=== PATIENT | male | born 1960 | race Caucasian/White ===

== ENCOUNTER 2022-11-08 16:12 | Outpatient (CLI) | payer MEDICARE, OTHER, SELFPAY ==
--- NOTE | 2022-11-08 16:14 | CRLHL7_ITS ---
For Patients: As a result of the Cures Act, medical imaging exams and procedure reports are released immediately into your electronic medical record. You may view this report before your referring provider. If you have questions, please contact your health care provider. INDICATION: COUGH, LEG EDEMA TECHNIQUE: Chest 2 views COMPARISON: 10/03/2019 FINDINGS: Left pleural effusion is present. Trace right pleural effusion. Increased lung volumes. No compression fracture. No pneumothorax. Postop changes right upper quadrant. No compression fracture. Cardiac silhouette is not enlarged. IMPRESSION: Small left pleural effusion. Trace right pleural effusion. No hydrostatic edema. COPD. Dictated by Miguel Ángel Pena MD @ 11/09/2022 8:42:49 AM (Electronically Signed)
== END 2022-11-08 16:13 | disposition home or self-care (01) ==
LOC: RAD 16:14
PROVIDERS: PCP Family Medicine; Visit Provider Family Medicine
DX: R60.0 Localized edema (principal); J90 Pleural effusion, not elsewhere classified; R05.9 Cough, unspecified
CPT/HCPCS: 71046; 80053; 84134

== ENCOUNTER 2022-11-19 14:00 | Outpatient (CLI) | payer MEDICARE, OTHER, SELFPAY ==
--- OUTSIDE RECORDS SUMMARY | 2022-11-19 14:17 | XMS_ITS | Continuity of Care Document ---
Author Name Unknown Organization [facility] Address [address] [facility] [place] [address] Phone Care Team Providers Care Supervisor Industrial Garment Name Role Phone Will Van GILLIS Unavailable Unavailabl e Allergies, Adverse Reactions, Alerts Substance Reaction Status Criticality lorazepam Active No Information mushroom Active No Information BUPROPION HCL Active No Information terazosin Active No Information losartan Active No Information lisinopril Active No Information hydrochlorothiazide Active No Infor mation Medications Medication Instructions Dosage Effective Dates (start - stop) Status Comments atenolol 50 mg tablet take 1 tablet by oral route every day 50 MG - Active Creon 6,000-19,000-30,000 unit capsule,delayed release take 4 capsule by oral route 3 times every day with meals and 2 capsules with each snack 4.00 capsule - Active oxycodone 10 mg tablet take 1 tablet by oral route every 4 hours as needed for pain, MAX 4 per day - Active hydroxyzine pamoate 25 mg capsule take 1 capsule by oral route 4 times every day 25 MG - Active ProAir HFA 90 mcg/actuation aerosol inhaler inhale 2 puff by inhalation route every 4 - 6 hours as needed 180 MCG - Active Qvar 80 mcg/actuation Metered Aerosol oral inhaler inhale 1 puff by inhalation route 2 times every day - Active ipratropium-albutero l 0.5 mg-3 mg(2.5 mg base)/3 mL nebulization soln inhale 3 milliliter by nebulization route 4 times every day as needed 3 milliliter - Active Procedures Procedure Date No Charge For Visit Per Prov OFFICE/OUTPATIENT VISIT, EST N BLOCK INJ, CELIAC PLEXUS FLUOROGUIDE FOR SPINE INJECTION 021 OFFICE/OUTPATIENT VISIT, EST Drug Urine Toxology With Chromatography Substance Interv 15-30mn OFFICE/OUTPATIENT VISIT, NEW OFFICE/OUTPATIENT VISIT, EST OFFICE CONSULTATION Advance Directives Directive Yes / No Effective Date File Name No Information Encounters Encounter Description Practice Location Reason(s) For Visit Diagnoses Date Provider Providers Copied on Encounter [facility], [address] [place] [address], [id number] , [place] tel:[phone] [facility] No Information 2 Arturo Araujo. [address] [place], [place], [id number] , [place]. tel:[phone] [facility], [address] [place] [address], [id number] , [place] tel:[phone] [facility] Chronic pancreatitis 1 Martinez Harmon. [address] [place], [place], [id number] , [place]. tel:[phone] Referring Provider: Lon Handy, [facility] [address] [place], [address]. tel:[phone] OFFICE/OUTPAT IENT VISIT, EST [facility], [address] [place] [address], [id number] , [place] tel:[phone] [facility] Abdominal pain (chief complaint) Chronic pain syndromeLong term (current) use of opiate analgesicCOPDGene ralized abdominal painChronic pancreatitisDepre ssion 1 Home Peacock. [address] [facility] [address], [place], [place], [id number] , [place]. tel:[phone] Referring Provider: Lon Handy, [facility] [address] [place], [address]. tel:[phone] [facility], [address] [place] [address], [id number] , [place] tel:[phone] [facility] Chronic pancreatitis 1 Martinez Harmon. [address] [place] [address], [id number] , [place]. [phone] Referring Provider: Lon Handy, [facility] [address] [place], [address]. tel:[phone] OFFICE/OUTPAT IENT VISIT, [facility], [address] [place] [address], [id number] , [place] [phone] [facility] Abdominal pain (chief complaint) Chronic pain syndromeLong term (current) use of opiate analgesicCOPDGene ralized abdominal painDepressionChr onic pancreatitis [address]. [address] [facility] [address], [place], [place], [id number] , [place]. [phone] Referring Provider: Lon Handy, [facility] [address] [place], [address]. tel:[phone] [facility], [address] [place] [address], [id number] , [place] tel:[phone] [facility] No Information [address]. [address] [facility] [address], [place], [place], [id number] , [place]. [phone] Referring Provider: Van Tong, [address] [place] [address], [id number]. tel:[phone] OFFICE/OUTPAT IENT VISIT, [facility], [address] [place] [address], [id number] , [place] tel:[phone] [facility] Abdominal pain (chief complaint) Chronic pain syndromeEncounter for screening for other disorderEncounter for therapeutic drug level monitoringLong term (current) use of opiate analgesicCOPDGene ralized abdominal painDepressionChr onic pancreatitis 1 Nyongesa Madonna. [address] [facility] [address], [place], [place], [id number] , [place]. tel:[phone] Referring Provider: Lon Handy, [facility] [address] [place], [address]. tel:[phone] OFFICE/OUTPAT IENT VISIT, EST [facility], [address] [place], [place], [id number] , [place] [phone] [facility] Abdominal pain (chief complaint) Generalized abdominal painChronic pancreatitisTobac co use 7 Debi Price. [address] [place], [place], [id number] , [place]. [phone] Referring Provider: Lon Handy, [facility] [address] [place], [address]. tel:[phone] OFFICE CONSULTATION [facility], [address] [place], [place], [id number] , [place] tel:[phone] [facility] Abdominal pain (chief complaint) Generalized abdominal painLong term (current) use of opiate analgesicChronic pancreatitis 7 Debi Price. [address] [place], [place], [id number] , [place]. tel:[phone] Referring Provider: Lon Handy, [facility] [address] [place], [address]. tel:[phone] Family History Family Member Type Diagnosis Age At Onset No Information Payers Payer name Insurance type Covered green party ID Authoriza tion(s) No Information Social History Type Description Quantity Date Captured Comments Sex Male Smoking Status No Information Chief Complaint And Reason For Visit No Information Reason For Referral Reason For Referral No Information Plan Of Treatment Date Type Action Status Goal ALT (SGPT). Due on 21 due Goal Order Annual PT. Due on due Goal Creatinine. Due on 18 due Goal UDT. Due on due Goal HYDRAULIC LIFT DRIVER Scanned. Due on due Goal OARS. Due on due Goal AST (SGOT). Due on due Goal Medication Reconciliation. D ue on due Goal Height. Due on d ue Goal Review Allergy List. Due on due Goal Tobacco Use. Due on due Goal PHQ-9. Due on du e Goal Weight. Due on d ue Goal Update Social History. Due o n due Goal GUSSET EDGER Paperwork. Due on due Goal AST (SGOT). Due on due Goal OARS. Due on due Goal HYDRAULIC LIFT DRIVER Scanned. Due on due Goal Medication Reconciliation. D ue on due Goal Height. Due on d ue Goal Review Allergy List. Due on due Goal Tobacco Use. Due on due Goal PHQ-9. Due on du e Goal Weight. Due on d ue Goal Update Social History. Due o n due Goal UDT. Due on due Goal Creatinine. Due on 18 due Goal Order Annual PT. Due on due Goal ALT (SGPT). Due on due Goal GUSSET EDGER Paperwork. Due on due Goal Tobacco cessation counseling completed Goal GUSSET EDGER Paperwork. Due on due Goal ALT (SGPT). Due on due Goal Order Annual PT. Due on due Goal Creatinine. Due on 18 due Goal UDT. Due on due Goal HYDRAULIC LIFT DRIVER Scanned. Due on due Goal OARS. Due on due Goal AST (SGOT). Due on due Goal Medication Reconciliation. D ue on due Goal Height. Due on d ue Goal Review Allergy List. Due on due Goal Tobacco Use. Due on due Goal PHQ-9. Due on du e Goal Weight. Due on d ue Goal Update Social History. Due o n due Goal HYDRAULIC LIFT DRIVER Scanned. Due on due Goal OARS. Due on due Goal AST (SGOT). Due on due Goal UDT. Due on due Goal Creatinine. Due on 18 due Goal Order Annual PT. Due on due Goal ALT (SGPT). Due on due Goal GUSSET EDGER Paperwork. Due on due Goal Update Social History. Due o n due Goal Weight. Due on d ue Goal PHQ-9. Due on du e Goal Tobacco Use. Due on 021 due Goal Review Allergy List. Due on due Goal Height. Due on d ue Goal Medication Reconciliation. D ue on due Goal Tobacco cessation counseling completed History Of Present Illness Encounter Date Complaint History Of Prese nt Illness Abdominal pain Severity is 6. D uration is chronic. It occurs constantly. The problem is unchanged. Location is diffuse. The patient describes it as aching and sharp. Symptom is aggravated by bending over, lifting, stairs, twisting and running. Relieving factors include lying down, rest, meds, walking and changing positions. Abdominal pain (comments) Hilario phillips is here for a follow up. Abdominal pain persists this month, but medication (rx'ed by PCP) does help to some extent. Reports overall 25% pain relief from Bilateral Celiac Plexus Blocks with Fluoroscopy on 04/14/21 including improvement in severe spasms and sharp, stabbing abdominal pain. However, the constant aching pain persists, and when aggravated by eating may become sharp. [facility] does not have any further treatment options for him.Reports current medication (oxycodone 10mg MAX 5/day rx'ed by PCP, would like [facility] to take over) regimen provides 50% pain relief and allows for increased functionality. Denies side effects from current medication regimen. He has still needed his normal dosage of oxycodone daily to manage the pain, despite relief from the injection. He takes the oxycodone PRN when he feels the pain.No other concerns today. Abdominal pain Severity is 5. D uration is chronic. It occurs constantly. The problem is unchanged. Location is damon-umbilical. The patient describes it as sharp. Symptom is aggravated by lifting, running and prolonged positioning. Relieving factors include lying down, rest, changing positions and meds. Abdominal pain (comments) Hilario phillips is here for a followup after initial consult. Abdominal pain persists. He is interested with trialing interventional options. He has an oxygen machine with him in today's visit, 2-4 liters/day. Started 4 years ago.No other concerns today. Abdominal pain (comments) Hilario phillips is here for an initial consult and presents with abdominal pain, initial onset 7 years ago. 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 His pancreatitis was initiated by 10-12 years of taking lisinopril for hypertension, no longer taking. The pain is located in the epigastric area. Eating causes pain which leads to loss of appetite. He consulted Braeden Justice MD from [facility] who did not have anything for him and referred him to a pain clinic for further options. He has been working with PCP for pain management, He was recently hospitalized for anemia. A week ago he visited [facility] ER for opioid withdrawal , he was given valium and one dose of oxycodone which improved his s/sReferred by PCP to take over pain management.Treatment Tried:oxycodone rx'ed by PCP - helpful, but not providing as much relief as it has in the past. he noticing that needs to escalate the doses Nortriptyline - no help no injections Pt goal: [facility] to take over pain management.Reports hx of depression. Abdominal pain Severity is 5. D uration is chronic. It occurs constantly. Location is LUQ, RUQ. The patient describes it as aching, sharp and stabbing. Symptom is aggravated by lifting, running, twisting and stairs. Relieving factors include lying down and meds. Abdominal pain (comments) Chester pacheco is here for a follow-up and medication refill. Presents with #5 oxycodone - on track. Reports current medication regimen provides effective pain relief. Denies SE from current medication regimen. Continues to smoke 1/2 to 1 pack per day. Would like to discontinue pain medications in the future, but also indicates he is apprehensive about pursuing injections and stopping medications as his goal is to continue working and avoiding ER visits. Spouse is present with him today and reports that he is doing well with his current medication regimen and has avoided the ER for 14 months. Abdominal pain Severity is 4. D uration is chronic. It occurs constantly. The problem is unchanged. Location is and central. The patient describes it as aching and sharp. Symptom is aggravated by lifting, movement and stairs. Relieving factors include lying down, Rx meds, rest and walking. Abdominal pain (comments) Hilario phillips is here for an initial pain consult referred by Dr. Lon Handy. Ramila is present at visit today. Whipple surgery completed on 09/26/2015 was helpful. Hx of chronic pancreatitis but no pancreatic cancer. Has been managing with oxycodone 10 mg TID which is helpful. His goal is to taper and discontinue oxycodone and to take oxycodone only during pancreatitis flares. Patient tried amitriptyline, but limited benefit, unknown dose. Was prescribed Oxycontin last month which was less beneficial than oxycodone. No hx of injections. Smokes 10-20 cigarettes per day and is not interested in quitting smoking right now. Continues to work part-time. Hx of disc herniations but experiences no back pain at this time. Patient uses marijuana occasionally for sleep and pain relief. Abdominal pain Onset: 14 months ago. Severity is 6. Duration is chronic. Symptom is aggravated by bending over, lifting, movement, running, stairs and ladders. Relieving factors include lying down, heat, rest and Rx meds. Functional Status Date Functional Assessmen t No Information Instructions Date Instruction Additional Infor mation No Information Assessments Type Assessment Date No Information Patient Care Teams Name Effective Dates (start - stop) Status Members No Information
--- OUTSIDE RECORDS SUMMARY | 2022-11-19 14:17 | XMS_ITS | Continuity of Care Document ---
Author Name Unknown Organization [facility] enter Address [address] [place] [address] Phone Care Team Providers Care Instructional Consultant Name Role Phone [facility] Unavailable Unava ilable Procedures Procedure Date No Charge For Visit Per Prov N BLOCK INJ, CELIAC PELUS FLUOROGUIDE FOR SPINE INJECT Advance Directives Directive Yes / No Effective Date File Name No Information Encounters Encounter Description Practice Location Reason(s) For Visit Diagnoses Date Provider Providers Copied on Encounter [facility], [address] [place] [address], [id number], tel:[phone] [facility] No Information 1 [facility]. [address] [place] [address], [id number], [place]. tel:[phone] Referring Provider: Brian Ferrara [facility] [place], [address] . tel:[phone] [facility], [address] [place] [address], [id number], tel:[phone] [facility] No Information [facility]. [address] [place] [address], [id number], . tel:[phone] Referring Provider: Sofie Ferrara[address] [place], [address] . tel:[phone] Family History Family Member Type Diagnosis Age At Onset No Information Payers Payer name Insurance type Covered green party ID Authoriza tion(s) No Information Social History Type Description Quantity Date Captured Comments Sex Male Smoking Status No Information Chief Complaint And Reason For Visit No Information Reason For Referral Reason For Referral No Information Plan Of Treatment Date Type Action Status No Information History Of Present Illness Encounter Date Complaint History Of Prese nt Illness No Information Functional Status Date Functional Assessmen t No Information Instructions Date Instruction Additional Infor mation No Information Assessments Type Assessment Date No Information Patient Care Teams Name Effective Dates (start - stop) Status Members No Information
== END 2022-11-19 14:01 | disposition home or self-care (01) ==
PROVIDERS: PCP Family Medicine; Visit Provider Family Medicine
DX: R60.0 Localized edema (principal); I35.1 Nonrheumatic aortic (valve) insufficiency; I34.0 Nonrheumatic mitral (valve) insufficiency; I07.1 Rheumatic tricuspid insufficiency
CPT/HCPCS: 93306

== ENCOUNTER 2022-12-06 14:50 | Outpatient (CLI) | payer MEDICARE, OTHER, SELFPAY ==
--- OUTSIDE RECORDS SUMMARY | 2022-12-27 12:39 | XMS_ITS | Continuity of Care Document ---
Author Name Unknown Organization [facility] enter Address [address] [place] [address] Phone Care Team Providers Care Sanforizing Machine Operator Name Role Phone [facility] Unavailable Unava ilable Procedures Procedure Date No Charge For Visit Per Prov N BLOCK INJ, CELIAC PELUS FLUOROGUIDE FOR SPINE INJECT Advance Directives Directive Yes / No Effective Date File Name No Information Encounters Encounter Description Practice Location Reason(s) For Visit Diagnoses Date Provider Providers Copied on Encounter [facility], [address] [place] [address], [id number], tel:[phone] [facility] No Information 1 [facility]. [address] [place] [address], [id number], . tel:[phone] Referring Provider: [facility] [address] [place], [address]. tel:[phone] [facility], [address] [place] [address], [id number], tel:[phone] [facility] No Information [facility]. [address] [place] [address], [id number], . tel:[phone] Referring Provider: Yoan FerraraFluoresentric N [facility] [address], [place], [address]. tel:[phone] Family History Family Member Type Diagnosis Age [...]
--- OUTSIDE RECORDS SUMMARY | 2022-12-27 12:39 | XMS_ITS | Continuity of Care Document ---
Author Name Unknown Organization [facility] Address [address] [facility] [place] [address] Phone Care Team Providers Care Corrective Therapist Name Role Phone Will Van GILLIS Unavailable [...] Diagnoses Date Provider Providers Copied on Encounter [facility], [address] [place] [address], [id number] , [place] [phone] [facility] No Information 2 Arturo Araujo. [address] [place], [place], [id number] , [place]. tel:[phone] [facility], [address] [place] [address], [id number] , [place] tel:[phone] [facility] Chronic pancreatitis 1 Henriquezbecky Harmon. [facility], [address] [facility] [address], [place], [address], [place]. tel:[phone] Referring Provider: Lon Handy, [facility] [address] [place], [address]. tel:[phone] OFFICE/OUTPAT IENT VISIT, EST [facility], [address] [place] [address], [id number] , [place] tel:[phone] [facility] Abdominal pain (chief complaint) Chronic pain syndromeLong term (current) use of opiate analgesicCOPDGene ralized abdominal painChronic pancreatitisDepre ssion 1 Home Pe[address]. [address], [place], [place], [id number] , [place]. tel:[phone] Referring Provider: Lon Handy, [facility] [address] [place], [address]. tel:[phone] [facility], [address] [place], [place], [id number] , [place] tel:[phone] [facility] Chronic pancreatitis 1 Martinez Harmon. [facility], [address] [facility] [address], [place], [address], [place]. tel:[phone] Referring Provider: Lon Handy, [facility] [address] [place], [address]. tel:[phone] OFFICE/OUTPAT IENT VISIT, [facility], [address] [place] [address], [id number] , [place] [phone] [facility] Abdominal pain (chief complaint) Chronic pain syndromeLong term (current) use of opiate analgesicCOPDGene ralized abdominal painDepressionChr onic pancreatitis [address]. [address] [facility] [address], [place], [place], [id number] , [place]. [phone] Referring Provider: Lon Handy, [facility] [address] [place], [address]. tel:[phone] [facility], [address] [place] [address], [id number] , [place] tel:[phone] [facility] No Information 1 [address]. [address] [address] [address], [place], [place], [id number] , [place]. [phone] Referring Provider: Van Tong, [address] [place], [address]. tel:[phone] OFFICE/OUTPAT IENT VISIT, [facility], [address] [place] [address], [id number] , [place] tel:[phone] [facility] Abdominal pain (chief complaint) Chronic pain syndromeEncounter for screening for other disorderEncounter for therapeutic drug level monitoringLong term (current) use of opiate analgesicCOPDGene ralized abdominal painDepressionChr onic pancreatitis [address]. [address], [place], [id number] , [place]. tel:[phone] Referring Provider: Lon Handy, [facility] [address] [place], [address]. tel:[phone] OFFICE/OUTPAT IENT VISIT, EST [facility], [address] [place], [place], [id number] , [place] tel:[phone] [facility] [place] Abdominal pain (chief complaint) Generalized abdominal painChronic pancreatitisTobac co use 7 Trkerlinenadeborah Price. [address] [place], [place], [id number] , [place]. [phone] Referring Provider: Lon Handy [facility] [address] [place], [address]. tel:[phone] OFFICE CONSULTATION [facility], [address] [place] [address], [id number] , [place] tel:[phone] [facility] Abdominal pain (chief complaint) Generalized abdominal painLong term (current) use of opiate analgesicChronic pancreatitis Debi Price. [address] [place], [place], [id number] , [place]. [phone] Referring Provider: Lon Handy [facility] [address] [place], [address]. tel:[phone] Family History Family Member Type Diagnosis Age At Onset No Information Payers Payer name Insurance type Covered libertarian ID Authoriza tion(s) No Information Social History Type Description Quantity Date Captured Comments Sex Male Smoking Status No Information Chief Complaint And Reason For Visit No Information Reason For Referral Reason For Referral No Information Plan Of Treatment Date Type Action Status Goal Height. Due on d ue Goal Review Allergy List. Due on due Goal Tobacco Use. Due on 022 due Goal PHQ-9. Due on du e Goal Weight. Due on d ue Goal Update Social History. Due o n due Goal LAUNDRY OPERATOR WASH ROOM Paperwork. Due on due Goal ALT (SGPT). Due on due Goal Order Annual PT. Due on due Goal Creatinine. Due on due Goal UDT. Due on due Goal SCREW MACHINE HAND Scanned. Due on due Goal OARS. Due on due Goal AST (SGOT). Due on due Goal Medication Reconciliation. D ue on due Goal AST (SGOT). Due on due Goal OARS. Due on due Goal SCREW MACHINE HAND Scanned. Due on due Goal UDT. Due on due Goal Creatinine. Due on due Goal Order Annual PT. Due on due Goal ALT (SGPT). Due on due Goal LAUNDRY OPERATOR WASH ROOM Paperwork. Due on due Goal Medication Reconciliation. D ue on due Goal Height. Due on d ue Goal Review Allergy List. Due on due Goal Tobacco Use. Due on due Goal PHQ-9. Due on du e Goal Weight. Due on d ue Goal Update Social History. Due o n due Goal Tobacco cessation counseling completed Goal LAUNDRY OPERATOR WASH ROOM Paperwork. Due on due Goal Weight. Due on d ue Goal Update Social History. Due o n due Goal ALT (SGPT). Due on due Goal Order Annual PT. Due on due Goal Creatinine. Due on 18 due Goal UDT. Due on due Goal SCREW MACHINE HAND Scanned. Due on due Goal OARS. Due on due Goal AST (SGOT). Due on due Goal Medication Reconciliation. D ue on due Goal Height. Due on d ue Goal Review Allergy List. Due on due Goal Tobacco Use. Due on due Goal PHQ-9. Due on du e Goal SCREW MACHINE HAND Scanned. Due on due Goal OARS. Due on due Goal AST (SGOT). Due on due Goal UDT. Due on due Goal Creatinine. Due on 18 due Goal Order Annual PT. Due on due Goal ALT (SGPT). Due on due Goal LAUNDRY OPERATOR WASH ROOM Paperwork. Due on due Goal Update Social [...] when aggravated by eating may become sharp. [facility] does not have any further treatment options [...] rest, changing positions and meds. Abdominal pain Severity is 5. D uration is chronic. It occurs constantly. Location is LUQ, RUQ. The patient describes it as aching, sharp and stabbing. Symptom is aggravated by lifting, running, twisting and stairs. Relieving factors include lying down and meds. Abdominal pain (comments) Hilario phillips [...] appetite. He consulted Braeden Justice MD from [facility] who did not have anything for him and referred him to a pain clinic for further options. He has been working with PCP for pain management, He was recently hospitalized for anemia. A week ago he visited [facility] ER for opioid withdrawal , he was [...] pain management.Reports hx of depression. Abdominal pain (comments) Chester pacheco is here [...] Rx meds, rest and walking. Abdominal pain Onset: 14 months ago. Severity [...]
== END 2022-12-06 14:51 | disposition home or self-care (01) ==
LOC: AMB 12-27 12:37
PROVIDERS: PCP Family Medicine; Visit Provider Family Medicine
DX: R41.82 Altered mental status, unspecified (principal)
CPT/HCPCS: A0425; A0427

== ENCOUNTER 2022-12-06 15:36 | Emergency (ER) | payer MEDICARE, OTHER, SELFPAY ==
[2022-12-06] VITALS (40 sets, daily range): BP systolic 85–160; BP diastolic 49–82; PULSE 81–95; RESP 8–20; TEMP 36.6; O2SAT 93–100
[2022-12-06] MEDS: HYDROmorphone 0.5 mg/0.5 ml inj IVP ×4 (15:50→20:07)
--- NOTE | 2022-12-06 15:55 | ED_ITS ---
HPI - General Adult General Time Seen by Provider: 03:30 Date Seen: 12/06/22 Chief complaint: Altered Mental Status Stated complaint: Sepsis Time Seen by Provider: 12/06/22 15:55 Source: family, RN notes reviewed and old records reviewed Mode of arrival: EMS Limitations: no limitations History of Present Illness HPI narrative: Rajiv is a 62-year-old male with a history of malnutrition, chronic nausea, ischemic bowel, chronic pancreatitis who comes to the emergency room via EMS for possible sepsis per EMS. According to Rajiv's he has been declining over the past 24 hours in terms of strength and seems to be much more tired and confused today. She states yesterday she had the help him stand up to go to the bathroom and this is unusual. He had been complaining of feeling like he needed to urinate but only urinating small amounts. He is usually not incontinent per presents with urine soaked underwear today. She states that today he slept in this morning and then this afternoon did appear to be replying to questions appropriately. He has had no fever or chills. He has occasional vomiting when he eats too much and she describes that he has multiple abdominal vessels that are occluded. He states that about 5-6 weeks ago he began did have swelling of his feet. She notes that he is actually supposed to discussed amputation of his left lower extremity with a [facility] physician coming up soon. This is secondary to chronic nonhealing ulcers and osteomyelitis. He is not currently on any antibiotics. He has not had a fever. EMS notes multiple open sores on body including buttock sacrum elbow bilateral feet and knee. His states that his skin is very fragile. EMS did use ketamine in order to place an IV and get Rajiv to come to the hospital. His is requesting no Ativan as he has had this in the past and it made him go ?crazy? and he did not have memories for about 24 hours. She states that he has been on oxycodone 10 mg chronically for about 10 years and he is overdue at this time. She notes that Dilaudid is the medication that seems to work best for his pain and that morphine does not. She does not think he has had any recent falls or trauma. He does not use alcohol or drugs at this time. He is still a smoker. She states he uses 4 L of oxygen chronically at home for COPD. He has not had an unusual cough. I do ask Rajiv's regarding his wishes for care. At this time he is full code. She states that she was actually going to have a talk with him as he was potentially facing a left lower extremity amputation secondary to chronic osteomyelitis. Note EMS also has concerns about possible a bug infestation and will be making a vulnerable adult claim. Mrs. Velasco was able to provide information regarding a hospitalization at [facility] in August of this year. Diagnoses at that time showed postprandial abdominal pain associated with nausea and vomiting and weight loss although according to CT angio there is no evidence of mesenteric ischemia Significant weight loss with severe malnutrition Pancreatic pseudocyst status post Whipple procedure History of alcohol-related pancreatitis Chronic opioid use Ischemic foot on the left. Severe COPD Related Data Home Medications Medication Instructions Recorded Confirmed albuterol sulfate 90 mcg/actuation 2 inh inhalation Q4H PRN 07/06/22 12/06/22 aerosol inhaler aspirin 325 mg tablet,delayed 325 mg PO DAILY 07/06/22 12/06/22 release budesonide 160 mcg-glycopyr 9 2 inh inhalation BID 07/06/22 12/06/22 mcg-formot 4.8 mcg/actuation HFA inhaler hydroxyzine HCl 25 mg tablet 25 mg PO Q6H PRN 07/06/22 12/06/22 omeprazole 20 mg tablet,delayed 20 mg PO DAILY 07/06/22 12/06/22 release amlodipine 10 mg tablet 10 mg PO DAILY 11/08/22 12/06/22 atenolol 100 mg tablet 50 mg PO BID 11/08/22 12/06/22 ipratropium 0.5 mg-albuterol 3 mg 1 ml inhalation QID PRN 11/08/22 12/06/22 (2.5 mg base)/3 mL nebulization soln [id number] 2 cap PO TIDWMEAL 12/06/22 12/06/22 6,000-19,000-30,000 unit capsule,delayed rel (Creon) Previous Rx's Medication Instructions Recorded oxycodone 5 mg tablet 15 mg PO QID PRN pain #168 tabs 11/30/22 Allergies Allergy/AdvReac Type Severity Reaction Status Date / Time lisinopril Allergy Intermediate Confusion Verified 12/06/22 15:57 losartan Allergy Mild Verified 12/06/22 15:57 bupropion Allergy Unknown Verified 12/06/22 15:57 terazosin Allergy Unknown Hypotension Verified 12/06/22 15:57 hydrochlorothiazide AdvReac Unknown spacy Verified 12/06/22 15:57 lorazepam AdvReac Unknown Confusion Verified 12/06/22 15:57 Mushroom Extract Complex Allergy Mild Gastrointestinal Uncoded 11/08/22 15:23 Upset Review of Systems Status of ROS: Reports: unobtainable due to medical condition Narrative: According to , no recent fever chills vomiting or diarrhea. Const: Reports: fatigue and malaise; Denies: fever or chills Endo: Reports: fatigue PFSH PFSH Medical History History of alcohol abuse ?F10.11 - Alcohol abuse, in remission (ICD-10) History of delayed wound healing ?Z87.898 - Personal history of other specified conditions (ICD-10) History of pulmonary embolism (10/26/05) ?Z86.711 - Personal history of pulmonary embolism (ICD-10) Surgical History History of cholecystectomy (03/04/15) ?Z90.49 - Acquired absence of other specified parts of digestive tract (ICD- 10) History of colonoscopy ?Z98.890 - Other specified postprocedural states (ICD-10) History of revascularization procedure of lower extremity (06/26/21) ?Z98.62 - Peripheral vascular angioplasty status (ICD-10) 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) ?Z90.410 - Acquired total absence of pancreas (ICD-10) ?Z90.49 - Acquired absence of other specified parts of digestive tract (ICD- 10) Status post bilateral cataract extraction (2015) ?Z98.41 - Cataract extraction status, right eye (ICD-10) ?Z98.42 - Cataract extraction status, left eye (ICD-10) Family History Father Coronary artery disease Social History Smoking Status: Current every day smoker How often do you have a drink containing alcohol: never AUDIT-C Alcohol total score: 0 Non-prescribed substance use: denies use service: No Exam Narrative: Exam Narrative: Patient is obtain ended at this time. He does wince when we try to move him. He is protecting his airway. Pupils are approximately 3 mm and reactive. He is cachectic in appearance and smells strongly of urine. Oral dentition very poor. Neck is supple. Heart with regular rate and rhythm and lungs are with decreased breath sounds bilaterally but no crackles are auscultated. Abdomen is soft there does not appear to be any tenderness. Questionable fullness in the pelvic region. He has drawn his left leg into a flexed position. His knee has open ulcer without surrounding erythema. His feet bilaterally show may serrated tissue especially on the left with bilateral 3+ swelling. Right dorsum of the foot has a half dollar sized ulcer. There is wearing of the heels bilaterally. On his buttocks he has multiple areas of erythema and skin breakdown with ulceration in the low sacral area as well as the left buttock. Additional skin breakdown on the right elbow. He is starting to be resistant to examination. Dilaudid 0.5 mg IV is given and he is much improved. He has still not been conversive at this time. Const: Vital Signs, click to edit/add: Vital Signs - 24 hr 12/06/22 15:38 12/06/22 16:09 12/06/22 16:15 Temperature 97.8 F Pulse Rate 89 88 Pulse Rate [Pulse Oximeter] 84 Respiratory Rate 20 19 20 Blood Pressure Blood Pressure [Ri ght Upper Arm] 109/79 Pulse Oximetry 100 100 Oxygen Delivery Me thod Room Air 12/06/22 16:30 12/06/22 16:41 12/06/22 16:45 Temperature Pulse Rate 95 85 91 Pulse Rate [Pulse Oximeter] Respiratory Rate 15 16 8 L Blood Pressure 160/79 H Blood Pressure [Ri ght Upper Arm] Pulse Oximetry 100 100 100 Oxygen Delivery Me thod 12/06/22 16:47 12/06/22 17:00 12/06/22 17:02 Temperature Pulse Rate 86 83 85 Pulse Rate [Pulse Oximeter] Respiratory Rate 16 16 14 Blood Pressure 151/51 H 138/82 Blood Pressure [Ri ght Upper Arm] Pulse Oximetry 100 100 100 Oxygen Delivery Wy thod 12/06/22 17:15 12/06/22 17:30 12/06/22 17:31 Temperature Pulse Rate 84 87 86 Pulse Rate [Pulse Oximeter] Respiratory Rate 12 16 15 Blood Pressure 131/51 L Blood Pressure [Ri ght Upper Arm] Pulse Oximetry 96 100 100 Oxygen Delivery Me thod 12/06/22 17:32 12/06/22 17:51 12/06/22 18:00 Temperature Pulse Rate 87 87 Pulse Rate [Pulse Oximeter] Respiratory Rate 14 13 16 Blood Pressure Blood Pressure [Ri ght Upper Arm] Pulse Oximetry 100 100 Oxygen Delivery Wy thod 12/06/22 18:01 12/06/22 18:15 12/06/22 18:17 Temperature Pulse Rate 84 87 85 Pulse Rate [Pulse Oximeter] Respiratory Rate 13 14 12 Blood Pressure 138/61 141/54 H Blood Pressure [Ri ght Upper Arm] Pulse Oximetry 100 100 100 Oxygen Delivery Wy thod 12/06/22 18:30 12/06/22 18:31 12/06/22 18:45 Temperature Pulse Rate 87 85 85 Pulse Rate [Pulse Oximeter] Respiratory Rate 13 12 14 Blood Pressure 140/68 H Blood Pressure [Ri ght Upper Arm] Pulse Oximetry 100 100 100 Oxygen Delivery Wy thod 12/06/22 18:46 12/06/22 18:47 12/06/22 19:00 Temperature Pulse Rate 86 85 85 Pulse Rate [Pulse Oximeter] Respiratory Rate 14 12 11 L Blood Pressure 107/53 L Blood Pressure [Ri ght Upper Arm] Pulse Oximetry 100 100 100 Oxygen Delivery Wy thod 12/06/22 19:01 12/06/22 19:15 12/06/22 19:16 Temperature Pulse Rate 86 86 88 Pulse Rate [Pulse Oximeter] Respiratory Rate 11 L 14 15 Blood Pressure 117/56 L 107/60 Blood Pressure [Ri ght Upper Arm] Pulse Oximetry 100 100 100 Oxygen Delivery Wy thod 12/06/22 19:30 12/06/22 19:31 12/06/22 19:45 Temperature Pulse Rate 85 86 83 Pulse Rate [Pulse Oximeter] Respiratory Rate 15 14 15 Blood Pressure 108/57 L Blood Pressure [Ri ght Upper Arm] Pulse Oximetry 100 100 100 Oxygen Delivery Wy thod 12/06/22 19:46 12/06/22 19:47 12/06/22 20:00 Temperature Pulse Rate 83 83 83 Pulse Rate [Pulse Oximeter] Respiratory Rate 14 14 14 Blood Pressure 111/60 Blood Pressure [Ri ght Upper Arm] Pulse Oximetry 100 100 100 Oxygen Delivery Me thod 12/06/22 20:01 12/06/22 20:15 12/06/22 20:16 Temperature Pulse Rate 83 82 82 Pulse Rate [Pulse Oximeter] Respiratory Rate 14 13 11 L Blood Pressure 98/56 L 85/49 L Blood Pressure [Ri ght Upper Arm] Pulse Oximetry 100 100 100 Oxygen Delivery Me thod 12/06/22 20:27 12/06/22 20:30 12/06/22 20:31 Temperature Pulse Rate 83 81 82 Pulse Rate [Pulse Oximeter] Respiratory Rate 11 L 12 15 Blood Pressure 96/51 L 95/51 L Blood Pressure [Ri ght Upper Arm] Pulse Oximetry 100 100 100 Oxygen Delivery Me thod 12/06/22 21:03 Temperature Pulse Rate Pulse Rate [Pulse Oximeter] Respiratory Rate Blood Pressure Blood Pressure [Ri ght Upper Arm] Pulse Oximetry 93 Oxygen Delivery Me thod Nasal Cannula Documenting provider has reviewed patient's vital signs: yes Course Course Hospital Course: Differential diagnosis is quite broad and includes sepsis, pneumonia, CVA, acute coronary syndrome, ischemic bowel, urinary tract infection, osteomyelitis with cellulitic extension. Blood cultures, CBC, comprehensive, lipase, troponin, CRP and chest x-ray ordered. Will place a urinary catheter is patient has between 377 to greater than 500 mils in bladder. Will start IV antibiotics vancomycin 1 g and Zosyn 3.375 g IV. I do not think that there was alcohol implicated in today's visit but given past history and altered mentation will check for alcohol as well. 1 L of normal saline is given. Reevaluation(s) Reevaluation #1: Nursing staff contacted me as they were having a difficult time with a blood draw. They did have a small IV in place which they continued to give fluids through. I did contact our surgeon Dr. Martinez and she was able to place a central line. Note that he did present challenges as he did appear to be hypovolemic. Ketamine 30 mg IV was given during the placement of the central line. Additional fluid was then given once the central line was placed. Normal saline 500 mL had been given by EMS and we did given additional 1.5 L. fluids were stopped when sodium result returned at 118. At that point we did stop and orders for repeat sodium, troponin, glucose, hemoglobin as well as VBG are currently pending. Note that sodium results of 118 was drawn after patient had already C received probably 1-1-1/2 L. Vital Signs Vital signs: Initial Vital Signs Temperature 97.8 F 12/06/22 15:38 Temperature Source Temporal Artery Scan 12/06/22 15:38 Pulse Rate 84 12/06/22 15:38 Respiratory Rate 20 12/06/22 15:38 Blood Pressure 109/79 12/06/22 15:38 Blood Pressure Mean 89 12/06/22 15:38 Oxygen Delivery Method Room Air 12/06/22 15:38 Vital Signs Temperature 97.8 F 12/06/22 15:38 Pulse Rate 84 12/06/22 15:38 Respiratory Rate 20 12/06/22 15:38 Blood Pressure 109/79 12/06/22 15:38 Oxygen Delivery Method Room Air 12/06/22 15:38 Temperature 97.8 F 12/06/22 15:38 Pulse Rate 82 12/06/22 20:31 Respiratory Rate 15 12/06/22 20:31 Blood Pressure 95/51 L 12/06/22 20:31 Pulse Oximetry 93 12/06/22 21:03 Oxygen Delivery Method Nasal Cannula 12/06/22 21:03 Medical Decision Making MDM Narrative Medical decision making narrative: 1. . Hyponatremia-profound at 118. This was after 2 L saline had been given. Normal saline stopped at 2 L upon medical receptionist biller of results. Note sodium level 132 approximately 1 month ago. ETOH is negative. Second sodium level 119. [facility] was contacted and they request no hypertonic saline at this time. Will continue fluids with LR at 75 mils an hour. 2. Altered mentation -ketamine was used on scene as David's did not want benzodiazepine use as he had had confusion from that in the past. Additional ketamine was needed during his stay in the ED while placing central line. I did explain that seizures are a possibility in this particular situation and the treatment would be benzodiazepines and Mrs. Velasco is receptive of that and gives us permission to use Ativan if needed. 3. Hypokalemia-mild at 3.3. Will replace with 40 mEq IV piggyback. 4. Elevated troponin-EKG does not show any acute findings of ischemia. Initial troponin 0.06. Second troponin now returns at 0.11. Second EKG shows some flattening of the T-waves but again no acute evidence of ischemia. 5. . Hypocalcemia 6. Urinary retention-no evidence of UTI. Catheter was placed and Lorenz remains in place. 7. Failure to thrive -chronic weight loss noted on previous note from [facility] in August. Patient with poor p.o. intake secondary to nausea and stomach pain. states that he does have decreased circulation in the abdomen but there is no evidence of mesenteric ischemia noted on CT per [facility]. Lactate is normal today. 8. Multiple ulcerated areas of body -most profound is left foot which patient is noted to have a history of ischemic leg and was due to meet with Orthopedics tomorrow for discussion regarding amputation. Vancomycin 1 g and Zosyn 3.375 g IV given to patient. White count and CRP elevated but lactate is normal. 9. History of COPD-no evidence of pneumonia on chest x-ray. VBG pending. 10. Disposition -attempting transfer to [facility] for multiple medical problems including management of hyponatremia, hypokalemia, ischemic left foot with secondary cellulitis, COPD. 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 Dr. Angeles accepting as well. Note I did receive phone call from EMS as they were departing [facility]. David had been fairly comfortable here but started becoming more combative. EMS thinks that is because that he is on a small cotton likely experiencing discomfort from his ulcers. They did try fentanyl 50 mcg and a did request permission for further ketamine. I did suggest 25 mg of ketamine IV at this time. Medical Records Medical records reviewed: Yes I reviewed the patient's medical records Lab Data Lab results reviewed: Yes I reviewed the patient's lab results Labs: Lab Results 12/06/22 12/06/22 12/06/22 Range/Units 15:58 16:39 16:50 WBC 11.68 H (4.50-11.00) K/uL RBC 2.93 L (4.30-5.90) m/uL Hgb 8.5 L (13.5-17.5) gm/dL Hct 23.5 L (37.0-53.0) % MCV 80 (80-100) fL MCH 29 (26-34) pg MCHC 36 (32-36) gm/dL RDW Coeff of Surekha 17.0 H (11.5-15.5) % Plt Count 227 (140-440) K/uL Neut % (Auto) 88.8 H (42.0-72.0) % Lymph % (Auto) 3.6 L (20-44) % Ness % (Auto) 6.1 (0.0-11.0) % Eos % (Auto) 0.0 (0.0-7.0) % Baso % (Auto) 0.1 (0.0-3.0) % Neut # (Auto) 10.40 H (1.7-7.0) K/uL Lymph # (Auto) 0.40 L (0.90-2.90) K/uL Ness # (Auto) 0.70 (0.00-0.90) K/UL Eos # (Auto) 0.00 (0.00-0.50) K/uL Baso # (Auto) 0.00 (0.00-0.30) K/uL VBG pH (7.32-7.43) VBG pCO2 (40-50) mmHG VBG pO2 (25-47) mmHG VBG HCO3 (21-28) mmol/L Sodium (135-149) mmol/L Potassium (3.6-5.1) mmol/L Chloride (96-114) mmol/L Carbon Dioxide (20-32) mmol/L BUN (7-30) mg/dL Creatinine (0.5-1.5) mg/dL Estimated GFR ml/min Glucose (60-115) mg/dL Lactate (0.5-1.9) mmol/L Calcium (8.4-10.6) mg/dL Total Bilirubin (0.1-1.5) mg/dL AST (12-35) U/L ALT (4-50) U/L Alkaline Phosphatase (40-150) U/L C-Reactive Protein (0.5-1.0) mg/dL Total Protein (6.0-8.3) g/dL Albumin (3.3-5.0) g/dL Lipase (23-300) U/L Urine Color Yellow (Yellow) Urine Appearance Cloudy A (Clear) Urine pH 6.0 (5.0-8.5) Ur Specific Mclean 1.010 (1.000-1.030) Urine Protein Negative (Negative) Urine Glucose (UA) Negative (Negative) Urine Ketones Negative (Negative) Urine Blood Trace-intact A (Negative) Urine Nitrite Negative (Negative) Urine Bilirubin Negative (Negative) Urine Urobilinogen 0.2 (0.2-1.0) Ur Leukocyte Esterase Negative (Negative) Urine RBC 0-2 (0-2) Urine WBC 2-5 (0-5) Ur Squamous Epith Cells None (None-Few) Urine Bacteria None (None) Ethyl Alcohol (0.01-0.03) % SARS-CoV-2 (PCR) Negative SARS-CoV-2 (Negative) Influenza Type A (PCR) Negative PCR FLU A (Negative) Influenza Type B (PCR) Negative PCR FLU B (Negative) RSV (PCR) Negative PCR RSV (Negative) POC Troponin I (0.01-0.04) ng/ml 12/06/22 12/06/22 12/06/22 Range/Units 17:35 17:42 18:18 WBC (4.50-11.00) K/uL RBC (4.30-5.90) m/uL Hgb (13.5-17.5) gm/dL Hct (37.0-53.0) % MCV (80-100) fL MCH (26-34) pg MCHC (32-36) gm/dL RDW Coeff of Surekha (11.5-15.5) % Plt Count (140-440) K/uL Neut % (Auto) (42.0-72.0) % Lymph % (Auto) (20-44) % Ness % (Auto) (0.0-11.0) % Eos % (Auto) (0.0-7.0) % Baso % (Auto) (0.0-3.0) % Neut # (Auto) (1.7-7.0) K/uL Lymph # (Auto) (0.90-2.90) K/uL Ness # (Auto) (0.00-0.90) K/UL Eos # (Auto) (0.00-0.50) K/uL Baso # (Auto) (0.00-0.30) K/uL VBG pH (7.32-7.43) VBG pCO2 (40-50) mmHG VBG pO2 (25-47) mmHG VBG HCO3 (21-28) mmol/L Sodium 118 L* (135-149) mmol/L Potassium 3.3 L (3.6-5.1) mmol/L Chloride 96 (96-114) mmol/L Carbon Dioxide 15 L (20-32) mmol/L BUN 28 (7-30) mg/dL Creatinine 1.1 (0.5-1.5) mg/dL Estimated GFR 77 ml/min Glucose 42 L* (60-115) mg/dL Lactate 0.7 (0.5-1.9) mmol/L Calcium 6.4 L (8.4-10.6) mg/dL Total Bilirubin 0.6 (0.1-1.5) mg/dL AST 44 H (12-35) U/L ALT 26 (4-50) U/L Alkaline Phosphatase 184 H (40-150) U/L C-Reactive Protein 20.0 H (0.5-1.0) mg/dL Total Protein 4.8 L (6.0-8.3) g/dL Albumin 1.6 L (3.3-5.0) g/dL Lipase 131 (23-300) U/L Urine Color (Yellow) Urine Appearance (Clear) Urine pH (5.0-8.5) Ur Specific Mclean (1.000-1.030) Urine Protein (Negative) Urine Glucose (UA) (Negative) Urine Ketones (Negative) Urine Blood (Negative) Urine Nitrite (Negative) Urine Bilirubin (Negative) Urine Urobilinogen (0.2-1.0) Ur Leukocyte Esterase (Negative) Urine RBC (0-2) Urine WBC (0-5) Ur Squamous Epith Cells (None-Few) Urine Bacteria (None) Ethyl Alcohol < 0.01 L (0.01-0.03) % SARS-CoV-2 (PCR) (Negative) Influenza Type A (PCR) (Negative) Influenza Type B (PCR) (Negative) RSV (PCR) (Negative) POC Troponin I 0.06 H (0.01-0.04) ng/ml 12/06/22 12/06/22 Range/Units 19:15 19:30 WBC (4.50-11.00) K/uL RBC (4.30-5.90) m/uL Hgb 8.1 L (13.5-17.5) gm/dL Hct (37.0-53.0) % MCV (80-100) fL MCH (26-34) pg MCHC (32-36) gm/dL RDW Coeff of Surekha (11.5-15.5) % Plt Count (140-440) K/uL Neut % (Auto) (42.0-72.0) % Lymph % (Auto) (20-44) % Ness % (Auto) (0.0-11.0) % Eos % (Auto) (0.0-7.0) % Baso % (Auto) (0.0-3.0) % Neut # (Auto) (1.7-7.0) K/uL Lymph # (Auto) (0.90-2.90) K/uL Ness # (Auto) (0.00-0.90) K/UL Eos # (Auto) (0.00-0.50) K/uL Baso # (Auto) (0.00-0.30) K/uL VBG pH 7.323 (7.32-7.43) VBG pCO2 31 L (40-50) mmHG VBG pO2 48.8 H (25-47) mmHG VBG HCO3 16 L (21-28) mmol/L Sodium 119 L* (135-149) mmol/L Potassium (3.6-5.1) mmol/L Chloride (96-114) mmol/L Carbon Dioxide (20-32) mmol/L BUN (7-30) mg/dL Creatinine (0.5-1.5) mg/dL Estimated GFR ml/min Glucose 99 (60-115) mg/dL Lactate (0.5-1.9) mmol/L Calcium (8.4-10.6) mg/dL Total Bilirubin (0.1-1.5) mg/dL AST (12-35) U/L ALT (4-50) U/L Alkaline Phosphatase (40-150) U/L C-Reactive Protein (0.5-1.0) mg/dL Total Protein (6.0-8.3) g/dL Albumin (3.3-5.0) g/dL Lipase (23-300) U/L Urine Color (Yellow) Urine Appearance (Clear) Urine pH (5.0-8.5) Ur Specific Mclean (1.000-1.030) Urine Protein (Negative) Urine Glucose (UA) (Negative) Urine Ketones (Negative) Urine Blood (Negative) Urine Nitrite (Negative) Urine Bilirubin (Negative) Urine Urobilinogen (0.2-1.0) Ur Leukocyte Esterase (Negative) Urine RBC (0-2) Urine WBC (0-5) Ur Squamous Epith Cells (None-Few) Urine Bacteria (None) Ethyl Alcohol (0.01-0.03) % SARS-CoV-2 (PCR) (Negative) Influenza Type A (PCR) (Negative) Influenza Type B (PCR) (Negative) RSV (PCR) (Negative) POC Troponin I 0.11 H (0.01-0.04) ng/ml Imaging Data Chest x-ray: Attestation: I have reviewed the pertinent imaging results. My impression: No acute infiltrates Radiologist's impression: No acute findings. Right IJ line at the cavoatrial junction. CT scan - head: Attestation: I have reviewed the pertinent imaging results. Radiologist's impression: [place] [address] Diagnostic Imaging Report Patient: Rajiv Velasco MR#: [id number] : 1960 Acct:[id number] Loc: ED Service Date: 12/06/[address]: Ordering Physician: Cynthia Caceres M.D. Date of Service: 12/06/22 Procedure(s): CT head/brain wo con Accession Number(s): [id number] cc: Lon Handy M.D.; Cynthia Caceres M.D.~ For Patients:? As a result of the Century Cures Act, medical imaging exams and procedure reports are released immediately into your electronic medical record.? You may view this report before your referring provider.? If you have questions, please contact your health care provider. INDICATION: Altered mental status. TECHNIQUE: CT of the head without contrast. Coronal and sagittal reformats are included. COMPARISON: Head CT from 06/22/2015. FINDINGS: No CT evidence of acute cortical infarct. No loss of trimble white matter differentiation. No hyperdense vessels to suggest intracranial thrombus. No acute intracranial hemorrhage. No mass effect or midline shift. No hydrocephalus or extra-axial collections. White matter is within normal limits for age. No acute osseous abnormalities. Mastoid air cells and paranasal sinuses are clear. Periapical dental disease involving multiple maxillary teeth. IMPRESSION: ? ? ? IMPRESSION:1.? No CT evidence of acute cortical infarct. No acute intracranial hemorrhage. No other acute intracranial findings. ECG Data Attestation: I personally reviewed and interpreted this ECG as follows: Interpretation: EKG 1. By my read shows sinus rhythm at a rate of 85. I do not note any acute ST or T-wave changes. Not markedly changed from 2019 EKG 2. By my read shows sinus rhythm at a rate of 82. I do not note any acute ST or T-wave changes. Critical Care Time Critical Care Time Critical Care Time: Yes Attestation: The patient required my highest level preparedness to intervene emergently and I personally spent this critical care time directly and personally managing the patient. This critical care time included: Obtaining a history; Examining the patient; Pulse oximetry; Ordering and reviewing of studies; Arranging urgent treatment with development of a management plan; Evaluation of patients response to treatment; Frequent reassessment discussions with other providers. This critical care time was performed to assess and manage the high probability of imminent life-threatening deterioration that could result in multiorgan failure. It was exclusive of separate billable procedures and treating other patients and teaching time. Total Critical Care Time in Minutes: 120 Discharge Plan Discharge Clinical Impression: Change in mental status, Ulcer, Acute hyponatremia, Acute hypokalemia, Hypocalcemia Patient Disposition: [facility] Condition: Critical Prescriptions: No Action hozkelqucd-vpyrbjbf-ptdqaokogb 160-9-4.8 mcg/actuation HFA aerosol inhaler 2 inh inhalation BID omeprazole 20 mg tablet,delayed release (DR/EC) 20 mg PO DAILY aspirin 325 mg tablet,delayed release (DR/EC) 325 mg PO DAILY hydroxyzine HCl 25 mg tablet 25 mg PO Q6H PRN albuterol sulfate 90 mcg/actuation HFA aerosol inhaler 2 inh inhalation Q4H PRN atenolol 100 mg tablet 50 mg PO BID ipratropium-albuterol 0.5 mg-3 mg(2.5 mg base)/3 mL solution for nebulization 1 ml inhalation QID PRN amlodipine 10 mg tablet 10 mg PO DAILY Creon 6,000-19,000 -30,000 unit capsule,delayed release(DR/EC) 2 cap PO TIDWMEAL oxycodone 5 mg tablet 15 mg PO QID PRN (Reason: pain) Qty: 168 0RF Rx Instructions: 2 week supply Stand Alone Forms: ClaimIt Info Instructions
--- NOTE | 2022-12-06 15:58 | CRLHL7_ITS ---
For Patients: As a result of the Cures Act, medical imaging exams and procedure reports are released immediately into your electronic medical record. You may view this report before your referring provider. If you have questions, please contact your health care provider. Indication: Altered mental status Technique: Portable chest Comparison: Chest x-ray 11/08/2022 Findings: Normal cardiac mediastinal silhouette. Right IJ line at the cavoatrial junction. Basilar atelectasis. No pneumothorax. No effusion seen. Dictated by Zahra Johnson MD @ 12/06/2022 6:58:48 PM (Electronically Signed)
--- NOTE | 2022-12-06 15:58 | CRLHL7_ITS ---
For Patients: As a result of the Century Cures Act, medical imaging exams and procedure reports are released immediately into your electronic medical record. You may view this report before your referring provider. If you have questions, please contact your health care provider. INDICATION: Altered mental status. TECHNIQUE: CT of the head without contrast. Coronal and sagittal reformats are included. COMPARISON: Head CT from 06/22/2015. FINDINGS: No CT evidence of acute cortical infarct. No loss of trimble white matter differentiation. No hyperdense vessels to suggest intracranial thrombus. No acute intracranial hemorrhage. No mass effect or midline shift. No hydrocephalus or extra-axial collections. White matter is within normal limits for age. No acute osseous abnormalities. Mastoid air cells and paranasal sinuses are clear. Periapical dental disease involving multiple maxillary teeth. IMPRESSION: IMPRESSION:1. No CT evidence of acute cortical infarct. No acute intracranial hemorrhage. No other acute intracranial findings. Please note that all CT scans at this facility use dose modulation, iterative reconstruction, and/or weight-based dosing when appropriate to reduce radiation dose to as low as reasonably achievable. Dictated by Clif Duran MD @ 12/06/2022 6:08:14 PM (Electronically Signed)
--- OUTSIDE RECORDS SUMMARY | 2022-12-06 16:01 | XMS_ITS | Continuity of Care Document ---
Author Name Unknown Organization [facility] enter Address [address] [address] Phone Care Team Providers Care Narcotics Detective Name Role Phone [facility] Unavailable Unava ilable Procedures Procedure Date No Charge For Visit Per Prov N BLOCK INJ, CELIAC PELUS FLUOROGUIDE FOR SPINE INJECT Advance Directives Directive Yes / No Effective Date File Name No Information Encounters Encounter Description Practice Location Reason(s) For Visit Diagnoses Date Provider Providers Copied on Encounter [facility], [address] [place] [address], [id number], tel:[phone] [facility] No Information 1 [facility]. [address] [place] [address], [id number], [place]. tel:[phone] Referring Provider: Brian Ferrara [facility] [place], [address] . tel:[phone] [facility], [address] [place] [address], [id number], tel:[phone] [facility] No Information [facility]. [address] [place] [address], [id number], . tel:[phone] Referring Provider: Faustino Henriquez [address] [place], [address] . tel:[phone] Family History Family Member Type Diagnosis Age At Onset No Information Payers Payer name Insurance type Covered republican ID Authoriza tion(s) No Information Social History [...]
--- OUTSIDE RECORDS SUMMARY | 2022-12-06 16:01 | XMS_ITS | Continuity of Care Document ---
Author Name Unknown Organization [facility] Address [address] [facility] [place] [address] Phone Care Team Providers Care Lathe Tender Name Role Phone Will Van GILLIS Unavailable [...] Diagnoses Date Provider Providers Copied on Encounter [facility], [address] [place] [address], [id number] , [place] tel:[phone] [facility] No Information 2 Arturo Araujo. [address] [place], [place], [id number] , [place]. tel:[phone] [facility], [address] [place] [address], [id number] , [place] tel:[phone] [facility] Chronic pancreatitis 1 Martinez Harmon. [address] [place], [place], [id number] , [place]. tel:[phone] Referring Provider: Lon Handy, [facility] [address] [place], [address]. tel:[phone] OFFICE/OUTPAT IENT VISIT, EST [facility], [address] [place] [address], [id number] , [place] tel:[phone] [facility] Abdominal pain (chief complaint) Chronic pain syndromeLong term (current) use of opiate analgesicCOPDGene ralized abdominal painChronic pancreatitisDepre ssion 1 Home [place]. [address], [place], [place], [id number] , [place]. tel:[phone] Referring Provider: Lon Handy, [facility] [address] [place], [address]. tel:[phone] [facility], [address] [place] [address], [id number] , [place] tel:[phone] [facility] Chronic pancreatitis 1 Martinez Harmon. [address] [place] [address], [id number] , [place]. [phone] Referring Provider: Lon Handy, [facility] [address] [place], [address]. tel:[phone] OFFICE/OUTPAT IENT VISIT, [facility], [address] [place] [address], [id number] , [place] [phone] [facility] Abdominal pain (chief complaint) Chronic pain syndromeLong term (current) use of opiate analgesicCOPDGene ralized abdominal painDepressionChr onic pancreatitis [address]. [address] [facility] [address], [place], [place], [id number] , [place]. [phone] Referring Provider: Lon Handy, [facility] [address] [place], [address]. tel:[phone] [facility], [address] [place] [address], [id number] , [place] tel:[phone] [facility] No Information [address] [place]. [address], [place], [place], [id number] , [place]. [phone] Referring Provider: Van Tong, [address] [place] [address], [id number]. tel:[phone] OFFICE/OUTPAT IENT VISIT, [facility], [address] [place] [address], [id number] , [place] tel:[phone] [facility] Abdominal pain (chief complaint) Chronic pain syndromeEncounter for screening for other disorderEncounter for therapeutic drug level monitoringLong term (current) use of opiate analgesicCOPDGene ralized abdominal painDepressionChr onic pancreatitis 1 Nyongesa Madonna. [address], [place], [place], [id number] , [place]. tel:[phone] Referring Provider: Lon Handy, [facility] [address] [place], [address]. tel:[phone] OFFICE/OUTPAT IENT VISIT, EST [facility], [address] [place], [place], [id number] , [place] [phone] [facility] Abdominal pain (chief complaint) Generalized abdominal painChronic pancreatitisTobac co use 7 Debi Price. [address] [place], [place], [id number] , [place]. [phone] Referring Provider: Lon Handy, [facility] [address] [place], [address]. tel:[phone] OFFICE CONSULTATION [facility], [address] [place], [place], [id number] , [place] tel:[phone] [facility] Abdominal pain (chief complaint) Generalized abdominal painLong term (current) use of opiate analgesicChronic pancreatitis 7 Debi Price. [address] [place], [place], [id number] , [place]. [phone] Referring Provider: Lon Handy, [facility] [address] [place], [address]. tel:[phone] Family History Family Member Type Diagnosis Age At Onset No Information Payers Payer name Insurance type Covered alliance party ID Authoriza tion(s) No Information Social History Type Description Quantity Date Captured Comments Sex Male Smoking Status No Information Chief Complaint And Reason For Visit No Information Reason For Referral Reason For Referral No Information Plan Of Treatment Date Type Action Status Goal Update Social History. Due o n due Goal Tobacco Use. Due on 022 due Goal Weight. Due on d ue Goal Creatinine. Due on 18 due Goal UDT. Due on due Goal OARS. Due on due Goal Order Annual PT. Due on due Goal Height. Due on d ue Goal PHQ-9. Due on du e Goal BASE REMOVER Scanned. Due on due Goal Medication Reconciliation. D ue on due Goal CHILD CARE COOK Paperwork. Due on due Goal Review Allergy List. Due on due Goal ALT (SGPT). Due on due Goal AST (SGOT). Due on due Goal Creatinine. Due on due Goal Height. Due on d ue Goal AST (SGOT). Due on due Goal ALT (SGPT). Due on due Goal Weight. Due on d ue Goal CHILD CARE COOK Paperwork. Due on due Goal UDT. Due on due Goal Order Annual PT. Due on due Goal BASE REMOVER Scanned. Due on due Goal Tobacco Use. Due on due Goal Medication Reconciliation. D ue on due Goal Update Social History. Due o n due Goal PHQ-9. Due on du e Goal OARS. Due on due Goal Review Allergy List. Due on due Goal Tobacco cessation counseling completed Goal OARS. Due on due Goal AST (SGOT). Due on due Goal Weight. Due on d ue Goal UDT. Due on due Goal PHQ-9. Due on du e Goal Review Allergy List. Due on due Goal Update Social History. Due o n due Goal BASE REMOVER Scanned. Due on due Goal Tobacco Use. Due on due Goal ALT (SGPT). Due on due Goal Order Annual PT. Due on due Goal CHILD CARE COOK Paperwork. Due on due Goal Height. Due on d ue Goal Medication Reconciliation. D ue on due Goal Creatinine. Due on due Goal Creatinine. Due on due Goal Order Annual PT. Due on due Goal Height. Due on d ue Goal ALT (SGPT). Due on due Goal Medication Reconciliation. D ue on due Goal CHILD CARE COOK Paperwork. Due on due Goal Review Allergy List. Due on due Goal UDT. Due on due Goal BASE REMOVER Scanned. Due on due Goal OARS. Due on due Goal Tobacco Use. Due on due Goal PHQ-9. Due on du e Goal Weight. Due on d ue Goal AST (SGOT). Due on 21 due Goal Update Social History. Due o n due Goal Tobacco cessation counseling completed History Of Present Illness Encounter Date Complaint History Of Prese nt Illness Abdominal pain (comments) Hilario phillips is here [...] when aggravated by eating may become sharp. [facility] does not have any further treatment options for him.Reports current medication (oxycodone 10mg MAX 5/day rx'ed by PCP, would like [facility] to take over) regimen provides 50% pain relief and allows for increased functionality. Denies side effects from current medication regimen. He has still needed his normal dosage of oxycodone daily to manage the pain, despite relief from the injection. He takes the oxycodone PRN when he feels the pain.No other concerns today. Abdominal pain Severity is 6. D uration [...] years ago.No other concerns today. Abdominal pain Severity is [...] appetite. He consulted Braeden Justice MD from [facility] who did not have anything for him and referred him to a pain clinic for further options. He has been working with PCP for pain management, He was recently hospitalized for anemia. A week ago he visited [facility] ER for opioid withdrawal , he [...] include lying down and meds. Abdominal pain Severity is 4. D uration is chronic. It occurs constantly. The problem is unchanged. Location is and central. The patient describes it as aching and sharp. Symptom is aggravated by lifting, movement and stairs. Relieving factors include lying down, Rx meds, rest and walking. Abdominal pain (comments) Chester pacheco is here [...] the ER for 14 months. Abdominal pain Onset: 14 months ago. Severity is 6. Duration is chronic. Symptom is aggravated by bending over, lifting, movement, running, stairs and ladders. Relieving factors include lying down, heat, rest and Rx meds. Abdominal pain (comments) Hilario phillips is [...] marijuana occasionally for sleep and pain relief. Functional Status Date Functional Assessmen t No Information Instructions Date Instruction Additional Infor mation No Information Assessments Type Assessment Date No Information Patient Care Teams Name Effective Dates (start - stop) Status Members No Information
[2022-12-06] MEDS: 0.9 % SODIUM CHLORIDE 1000 ml 1,000 ML IV ×2 (16:37→17:59)
[2022-12-06 17:02] LABS: Appearance Urine Cloudy (Clear); Bilirubin Urine Negative (Negative); Blood Urine Trace-intact (Negative); Color Urine Yellow (Yellow); Glucose Urine Negative (Negative); Ketones Urine Negative (Negative); Leukocyte Esterase Urine Negative (Negative); Nitrite Urine Negative (Negative); Protein Urine Negative (Negative); Urobilinogen Urine 0.2 (0.2-1.0)
[2022-12-06 17:13] LABS: RBC Urine 0-2 (0-2)
--- NOTE | 2022-12-06 17:30 | PM.GSCN ---
History of Present Illness Consult details Date Seen: 12/06/22 Consult date: 12/06/22 Narrative: 62-year-old male with multiple comorbidities presented to the emergency room in altered mental status. Patient has a difficult IV placement and is requiring antibiotics. Dr. Nye from the emergency room asked me to see this patient for central line placement. Review of Systems Narrative: Patient is altered in I am unable to obtain review of systems. [facility] Medical History History of alcohol abuse ?F10.11 - Alcohol abuse, in remission (ICD-10) History of delayed wound healing ?Z87.898 - Personal history of other specified conditions (ICD-10) History of pulmonary embolism (10/26/05) ?Z86.711 - Personal history of pulmonary embolism (ICD-10) Surgical History History of cholecystectomy (03/04/15) ?Z90.49 - Acquired absence of other specified parts of digestive tract (ICD-10) History of colonoscopy ?Z98.890 - Other specified postprocedural states (ICD-10) History of revascularization procedure of lower extremity (06/26/21) ?Z98.62 - Peripheral vascular angioplasty status (ICD-10) 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) ?Z90.410 - Acquired total absence of pancreas (ICD-10) ?Z90.49 - Acquired absence of other specified parts of digestive tract (ICD-10) Status post bilateral cataract extraction (2015) ?Z98.41 - Cataract extraction status, right eye (ICD-10) ?Z98.42 - Cataract extraction status, left eye (ICD-10) Family History Father Coronary artery disease Social History Smoking Status: Current every day smoker Meds Home Medications and Allergies Home Medications Medication Instructions Recorded Confirmed Type albuterol sulfate 90 mcg/actuation 2 inh inhalation Q4H PRN 07/06/22 12/06/22 History aerosol inhaler aspirin 325 mg tablet,delayed 325 mg PO DAILY 07/06/22 12/06/22 History release budesonide 160 mcg-glycopyr 9 2 inh inhalation BID 07/06/22 12/06/22 History mcg-formot 4.8 mcg/actuation HFA inhaler hydroxyzine HCl 25 mg tablet 25 mg PO Q6H PRN 07/06/22 12/06/22 History omeprazole 20 mg tablet,delayed 20 mg PO DAILY 07/06/22 12/06/22 History release amlodipine 10 mg tablet 10 mg PO DAILY 11/08/22 12/06/22 History atenolol 100 mg tablet 50 mg PO BID 11/08/22 12/06/22 History ipratropium 0.5 mg-albuterol 3 mg 1 ml inhalation QID PRN 11/08/22 12/06/22 History (2.5 mg base)/3 mL nebulization soln ptmjsx-erfpmpee-rgfldft 2 cap PO TIDWMEAL 12/06/22 12/06/22 History 6,000-19,000-30,000 unit capsule,delayed rel (Creon) Allergies Allergy/AdvReac Type Severity Reaction Status Date / Time lisinopril Allergy Intermediate Confusion Verified 12/06/22 15:57 losartan Allergy Mild Verified 12/06/22 15:57 bupropion Allergy Unknown Verified 12/06/22 15:57 terazosin Allergy Unknown Hypotension Verified 12/06/22 15:57 hydrochlorothiazide AdvReac Unknown spacy Verified 12/06/22 15:57 lorazepam AdvReac Unknown Confusion Verified 12/06/22 15:57 Mushroom Extract Complex Allergy Mild Gastrointestinal Uncoded 11/08/22 15:23 Upset Exam Narrative: Exam Narrative: General appearance: Alert, but altered and frequently says profanities. Neck: No incisions noted in the neck. There are multiple ecchymosis. Skin is very thin. Pulmonary: Chest symmetric, breathing is nonlabored Cardiovascular Heart: Regular rate and rhythm Skin: Multiple open wounds in bilateral lower extremities and buttocks. Const: Vital Signs, click to edit/add: Vital Signs - 24 hr 12/06/22 15:38 Temperature 97.8 F Pulse Rate [Pulse Oximeter] 84 Respiratory Rate 20 Blood Pressure [Ri ght Upper Arm] 109/79 Oxygen Delivery Me thod Room Air Results Labs Labs: Abnormal lab results 12/06/22 Range/Units 16:50 Urine Appearance Cloudy A (Clear) Urine Blood Trace-intact A (Negative) All other labs normal. Assessment and Plan Assessment and plan (1) Change in mental status: Status: Acute Plan 62-year-old male presents with altered mental status of unknown etiology. I discussed with the patient's the procedure central line placement and the risks associated the procedure. Patient's consent was obtained. Right internal jugular central line was placed under ultrasound guidance. Postprocedure chest x-ray was ordered. General Surgery Procedures Central Line Placement Right IJ: Time out performed: Yes Patient placed on monitor/pulse ox: Yes MD prep: mask, gown and gloves Central line prep: Chlorhexidine scrub and sterile drapes applied Local anesthesia used: lidocaine 1% Central line lumen inserted: triple Central line placement: non-tunnelled Post procedure: sutured in place, good blood return, all ports aspirated, flushed, capped and sterile dressing applied Patient tolerated procedure: well
[2022-12-06 17:31] LABS: PCR FLU A Negative PCR FLU A (Negative); PCR FLU B Negative PCR FLU B (Negative); PCR RSV Negative PCR RSV (Negative)
[2022-12-06 17:33] LABS: SARS PCR* Negative SARS-CoV-2 (Negative)
[2022-12-06 17:46] LABS: Basophils Percent Auto 0.1 % (0.0-3.0); Hematocrit 23.5 % (37.0-53.0); Hemoglobin* 8.5 gm/dL (13.5-17.5); Immature Granulocytes Pct Auto 1.4 %; Lymphocytes Percent Auto 3.6 % (20-44); Mean Corpuscular HGB Conc 36 gm/dL (32-36); Mean Corpuscular Hemoglobin 29 pg (26-34); Mean Corpuscular Volume 80 fL (80-100); Monocytes Percent Auto 6.1 % (0.0-11.0); Neutrophils Percent Auto 88.8 % (42.0-72.0); Platelet Count* 227 K/uL (140-440); Red Blood Count 2.93 m/uL (4.30-5.90); White Blood Count* 11.68 K/uL (4.50-11.00)
[2022-12-06 17:49] LABS: Slide Review Reflex No
[2022-12-06 17:56] LABS: Troponin, Point-of-Care* 0.06 ng/ml (0.01-0.04)
--- NOTE | 2022-12-06 17:58 | ED.NURSE ---
dr Caceres aware of trop 0.06.
--- NOTE | 2022-12-06 18:03 | ED.NURSE ---
Triple lumen jugular central line placed by surgeon at 17:20 without issue. Urinary asif catheter placed at 14:50 without concern. Verbal okay to use central line after placement confirmation with XRay at 18:00.
[2022-12-06 18:11] LABS: Albumin* 1.6 g/dL (3.3-5.0); Chloride* 96 mmol/L (96-114)
[2022-12-06 18:12] LABS: Potassium* 3.3 mmol/L (3.6-5.1)
[2022-12-06 18:14] LABS: Alkaline Phosphatase* 184 U/L (40-150); Aspartate Amino Transferase* 44 U/L (12-35); Bilirubin Total* 0.6 mg/dL (0.1-1.5); Carbon Dioxide* 15 mmol/L (20-32); Creatinine* 1.1 mg/dL (0.5-1.5); Estimated Glomerular Filt Rate 77 ml/min; Total Protein* 4.8 g/dL (6.0-8.3)
[2022-12-06 18:15] LABS: Alanine Aminotransferase* 26 U/L (4-50); Blood Urea Nitrogen* 28 mg/dL (7-30); Calcium* 6.4 mg/dL (8.4-10.6)
[2022-12-06 18:25] LABS: Lactate* 0.7 mmol/L (0.5-1.9)
[2022-12-06 18:28] LABS: Ethanol* < 0.01 % (0.01-0.03)
[2022-12-06] MEDS: PIPERACILLIN/TAZOBACTAM 3.375 GM in 0.9 % SODIUM CHLORIDE Mini-bag 100 ML IVPB (18:28)
[2022-12-06 18:29] LABS: Glucose* 42 mg/dL (60-115); Sodium* 118 mmol/L (135-149)
--- NOTE | 2022-12-06 18:34 | ED.NURSE ---
dr mcclellan aware of critical na 118 and glucose of 42.
[2022-12-06 19:14] LABS: Lipase* 131 U/L (23-300)
[2022-12-06 19:28] LABS: HCO3 VBG 16 mmol/L (21-28); PCO2 VBG 31 mmHG (40-50); PO2 VBG 48.8 mmHG (25-47); pH VBG 7.323 (7.32-7.43)
[2022-12-06 19:30] LABS: Hemoglobin* 8.1 gm/dL (13.5-17.5)
[2022-12-06 19:37] LABS: Troponin, Point-of-Care* 0.11 ng/ml (0.01-0.04)
[2022-12-06 19:50] LABS: Glucose* 99 mg/dL (60-115)
[2022-12-06 19:54] LABS: Sodium* 119 mmol/L (135-149)
[2022-12-06] MEDS: LACTATED RINGERS 1000 ML 1,000 ML 75 ML IV (20:26)
--- NOTE | 2022-12-06 20:59 | ED.NURSE ---
Patient discharged via EMS to [facility] MICU. Patient's vital signs stable at time of discharge. Used oxygen in the ER to maintain saturations, central line placement, asif placement, and one to one RN care given critical illness. Pain management with dilaudid and ketamine. Extensive wounds including eschar wounds to bilateral buttocks and left knee. Edematous, draining bilateral lower extremities, cold to the touch, and open/weeping with surrounding redness. Patient had skin tears to both upper extremities present upon admission dressed with a tegaderm. Bruising to bilateral hands.
== END 2022-12-06 21:12 | disposition home or self-care (01) ==
PROVIDERS: Emergency Provider Family Medicine; PCP Family Medicine
DX: R41.82 Altered mental status, unspecified (principal); E87.1 Hypo-osmolality and hyponatremia; E87.5 Hyperkalemia; E83.51 Hypocalcemia
CPT/HCPCS: 36415; 36556; 70450; 71045; 80053; 81001; 82077; 82803; 82947; 83605; 83690; 84295; 84484; 85018; 85025; 86140; 87040; 87186; 87631; 93005; 94761; 96365; 96366; 96375; 96376; 99285; 99291; 99292; J1170; J2543; J3370; J3490; J7030; J7050; J7120

== ENCOUNTER 2022-12-06 20:30 | Outpatient (CLI) | payer MEDICARE, OTHER, SELFPAY ==
--- OUTSIDE RECORDS SUMMARY | 2022-12-29 11:54 | XMS_ITS | Continuity of Care Document ---
Author Name Unknown Organization [facility] Address [address] [facility] [place] [address] Phone Care Team Providers Care Grain Shoveler Name Role Phone Will Van GILLIS Unavailable [...] Diagnoses Date Provider Providers Copied on Encounter [facility], [address] [place] [address], [id number] , [place] [phone] [facility] No Information 2 Arturo Araujo. [address] [place], [place], [id number] , [place]. tel:[phone] [facility], [address] [place] [address], [id number] , [place] tel:[phone] [facility] Chronic pancreatitis 1 Henriquezbecky Harmon. [facility], [address] [facility] [address], [place], [address], [place]. tel:[phone] Referring Provider: Lon Handy, [facility] [address] [place], [address]. tel:[phone] OFFICE/OUTPAT IENT VISIT, EST [facility], [address] [place] [address], [id number] , [place] tel:[phone] [facility] Abdominal pain (chief complaint) Chronic pain syndromeLong term (current) use of opiate analgesicCOPDGene ralized abdominal painChronic pancreatitisDepre ssion 1 [address]. [address] [facility] [address], [place], [place], [id number] , [place]. tel:[phone] Referring Provider: Lon Handy, [facility] [address] [place], [address]. tel:[phone] [facility], [address] [place], [place], [id number] , [place] tel:[phone] [facility] Chronic pancreatitis 1 Martinez Harmon. [facility], [address] [facility] [address], [place], [address], [place]. tel:[phone] Referring Provider: Lon Handy, [facility] [address] [place], [address]. tel:[phone] OFFICE/OUTPAT IENT VISIT, [facility], [address] [place] [address], [id number] , [place] [phone] [facility] Abdominal pain (chief complaint) Chronic pain syndromeLong term (current) use of opiate analgesicCOPDGene ralized abdominal painDepressionChr onic pancreatitis [address]. [address] [facility] [address], [place], [place], [id number] , [place]. [phone] Referring Provider: Lon Handy, [facility] [address] [place], [address]. tel:[phone] [facility], [address] [place] [address], [id number] , [place] tel:[phone] [facility] No Information 1 [address]. [address] [address] [address], [place], [place], [id number] , [place]. [phone] Referring Provider: Van Tong, [address] [place], [address]. tel:[phone] OFFICE/OUTPAT IENT VISIT, [facility] Pain [facility], [address] [place] [address], [id number] , [place] tel:[phone] [facility] Abdominal pain (chief complaint) Chronic pain syndromeEncounter for screening for other disorderEncounter for therapeutic drug level monitoringLong term (current) use of opiate analgesicCOPDGene ralized abdominal painDepressionChr onic pancreatitis [address]. [address] [facility] [address], [place], [place], [id number] , [place]. tel:[phone] Referring Provider: Lon Handy, [facility] [address] [place], [address]. tel:[phone] OFFICE/OUTPAT IENT VISIT, EST [facility], [address] [place], [place], [id number] , [place] tel:[phone] [facility] [place] Abdominal pain (chief complaint) Generalized abdominal painChronic pancreatitisTobac co use 7 Trkerlinenadeborah Price. [address] [place], [place], [id number] , [place]. [phone] Referring Provider: Lon Handy [facility] [address] [place], [address]. tel:[phone] OFFICE CONSULTATION [facility] Pain [facility], [address] [place] [address], [id number] , [place] tel:[phone] [facility] Abdominal pain (chief complaint) Generalized abdominal painLong term (current) use of opiate analgesicChronic pancreatitis Debi Price. [address] [place], [place], [id number] , [place]. tel:[phone] Referring Provider: Lon Handy [facility] [address] [place], [address]. tel:[phone] Family History Family Member Type Diagnosis Age At Onset No Information Payers Payer name Insurance type Covered democrat ID Authoriza tion(s) No Information Social History Type Description Quantity Date Captured Comments Sex Male Smoking Status No Information Chief Complaint And Reason For Visit No Information Reason For Referral Reason For Referral No Information Plan Of Treatment Date Type Action Status Goal Review Allergy List. Due on due Goal Tobacco Use. Due on 022 due Goal PHQ-9. Due on du e Goal Weight. Due on d ue Goal Update Social History. Due o n due Goal MANAGER OUTREACH Paperwork. Due on due Goal ALT (SGPT). Due on due Goal Order Annual PT. Due on due Goal Creatinine. Due on due Goal UDT. Due on due Goal COMMUNITY CHEST OFFICER Scanned. Due on due Goal OARS. Due on due Goal AST (SGOT). Due on due Goal Medication Reconciliation. D ue on due Goal Height. Due on d ue Goal AST (SGOT). Due on due Goal OARS. Due on due Goal COMMUNITY CHEST OFFICER Scanned. Due on due Goal UDT. Due on due Goal Creatinine. Due on due Goal Order Annual PT. Due on due Goal ALT (SGPT). Due on due Goal MANAGER OUTREACH Paperwork. Due on due Goal Update Social History. Due o n due Goal Medication Reconciliation. D ue on due Goal Height. Due on d ue Goal Review Allergy List. Due on due Goal Tobacco Use. Due on due Goal PHQ-9. Due on du e Goal Weight. Due on d ue Goal Tobacco cessation counseling completed Goal MANAGER OUTREACH Paperwork. Due on due Goal ALT (SGPT). Due on due Goal Order Annual PT. Due on due Goal Creatinine. Due on 18 due Goal UDT. Due on due Goal COMMUNITY CHEST OFFICER Scanned. Due on due Goal OARS. Due on due Goal AST (SGOT). Due on due Goal Medication Reconciliation. D ue on due Goal Height. Due on d ue Goal Review Allergy List. Due on due Goal Tobacco Use. Due on due Goal PHQ-9. Due on du e Goal Weight. Due on d ue Goal Update Social History. Due o n due Goal COMMUNITY CHEST OFFICER Scanned. Due on due Goal OARS. Due on due Goal AST (SGOT). Due on due Goal UDT. Due on due Goal Creatinine. Due on 18 due Goal Order Annual PT. Due on due Goal ALT (SGPT). Due on due Goal MANAGER OUTREACH Paperwork. Due on due Goal Update Social [...] when aggravated by eating may become sharp. [facility] does not have any further treatment [...] appetite. He consulted Braeden Justice MD from [facility] who did not have anything for him and referred him to a pain clinic for further options. He has been working with PCP for pain management, He was recently hospitalized for anemia. A week ago he visited [facility] ER for opioid withdrawal , he [...] hx of depression. Abdominal pain Severity is 4. D uration [...]
--- OUTSIDE RECORDS SUMMARY | 2022-12-29 11:54 | XMS_ITS | Continuity of Care Document ---
Author Name Unknown Organization [facility] enter Address [address] [place] [address] Phone Care Team Providers Care Alcoholism Worker Name Role Phone [facility] Unavailable Unava ilable Procedures Procedure Date No Charge For Visit Per Prov N BLOCK INJ, CELIAC PELUS FLUOROGUIDE FOR SPINE INJECT Advance Directives Directive Yes / No Effective Date File Name No Information Encounters Encounter Description Practice Location Reason(s) For Visit Diagnoses Date Provider Providers Copied on Encounter [facility], [address] [place] [address], [id number], tel:[phone] [facility] No Information 1 [facility]. [address] [place] [address], [id number], . tel:[phone] Referring [facility]: [facility] [employer] [address] [facility] [address], [place], [address]. tel:[phone] [facility], [address] [place] [address], [id number], tel:[phone] [facility] No Information [facility]. [address] [place] [address], [id number], . tel:[phone] Referring Provider: Yoan Ferr[facility]A [facility] [address], [place], [address]. tel:[phone] Family History Family Member Type Diagnosis Age [...]
== END 2022-12-06 20:31 | disposition home or self-care (01) ==
PROVIDERS: PCP Family Medicine; Visit Provider Family Medicine
DX: R41.82 Altered mental status, unspecified (principal); R79.89 Other specified abnormal findings of blood chemistry
CPT/HCPCS: A0425; A0427; A0434